=== PATIENT | male | born 2000 | race Two or more races ===

== ENCOUNTER 2018-03-28 14:28 | Emergency (ER) | payer OTHER ==
[~2018-03-28] VITALS: Ht 167.6 cm; Wt 99.8 kg
== END 2018-03-28 18:02 | disposition home or self-care (01) ==
LOC: ER 14:28
DX: B34.9 Viral infection, unspecified (principal); R51 Headache; J11.1 Influenza due to unidentified influenza virus with other respiratory manifestations